=== PATIENT | male | born 1960 | race Hispanic/Latino ===

== ENCOUNTER 2017-08-25 18:48 | Emergency (ER) | payer OTHER, SELFPAY | END 2017-08-25 20:27 | disposition home or self-care (01) | LOC: BURERS 18:48 | DX: T52 Toxic effect of organic solvents (principal); Y92.69 Other specified industrial and construction area as the place of occurrence of the external cause; Z87.891 Personal history of nicotine dependence | CPT/HCPCS: 94760 ==